=== PATIENT | female | born 1985 | race Caucasian/White ===

== ENCOUNTER 2021-07-18 11:33 | Outpatient (REF) | payer OTHER, MEDICAID, SELFPAY ==
[2021-07-18 13:22] LABS: Influenza A PCR NEGATIVE (Negative); Influenza B PCR NEGATIVE (Negative); Resp Syncy Virus RNA Qual PCR NEGATIVE (Negative); SARS COV2 PCR INHOUSE NEGATIVE (Negative)
== END 2021-07-18 11:34 | disposition home or self-care (01) ==
LOC: HO.LNP 11:33
PROVIDERS: Visit Provider Physician Assistant Medical
DX: Z20.822 Contact with and (suspected) exposure to COVID-19 (principal); J06.9 Acute upper respiratory infection, unspecified
CPT/HCPCS: 0241U

== ENCOUNTER 2022-12-17 07:50 | Outpatient (REF) | payer MEDICAID, SELFPAY ==
[2022-12-17 11:16] LABS: MANUAL DIFF FLAG NO
[2022-12-17 11:37] LABS: Basophils Absolute Auto 0.1 X10*3/uL (0.0-0.2); Basophils Percent Auto 0.9 % (0-2); Eosinophils Absolute Auto 0.2 X10*3/uL (0.0-0.4); Eosinophils Percent Auto 2.3 % (0-4); Hemoglobin 13.2 g/dl (12.0-16.0); Imm Gran Abs Auto 0.02 X10*3/uL (0.00-0.03); Imm Gran Pct Auto 0.3 % (0.0-0.4); Lymphocytes Absolute Auto 1.8 X10*3/uL (1.2-4.9); Lymphocytes Percent Auto 26.6 % (20-40); Mean Corpuscular HGB Conc 31.4 g/dl (31.0-35.0); Mean Corpuscular Hemoglobin 28.6 pg (27.0-33.0); Mean Corpuscular Volume 91.1 fL (80.0-98.0); Mean Platelet Volume 10.5 fL (9.4-12.3); Monocytes Absolute Auto 0.4 X10*3/uL (0.1-1.2); Monocytes Percent Auto 6.4 % (2-11); Neutrophils Absolute Auto 4.2 x10*3/uL (2.0-8.3); Neutrophils Percent Auto 63.5 % (45-73); Platelet Count 315 X10*3/uL (160-400); Red Blood Count 4.61 X10*6/uL (4.20-5.50); Red Cell Distribution Width 14.1 % (11.0-16.0); White Blood Count 6.6 X10*3/uL (4.8-10.8)
[2022-12-17 12:13] LABS: Alanine Aminotransferase 19 U/L (0-31); Aspartate Amino Transferase 17 U/L (5-31); Cholesterol 134 mg/dL; HDL Cholesterol 44 mg/dL; LDL Cholesterol Calculated 82 mg/dl; Triglycerides 40 mg/dL
[2022-12-17 12:46] LABS: Folate 14.9 ng/mL (> or = 4.0); TSH reflex Free T4 0.77 uIU/mL (0.32-4.0); Vitamin B12 > 2000 pg/mL (200-900)
[2022-12-19 13:04] LABS: TS Negative Control Passed; TS Panel A 0; TS Panel B 0; TS Positive Control Passed; TSpotTB Negative (Negative)
== END 2022-12-17 07:51 | disposition home or self-care (01) ==
LOC: HO.HMGCLDS 07:50
PROVIDERS: PCP Internal Medicine; Visit Provider Internal Medicine
DX: Z00.01 Encounter for general adult medical examination with abnormal findings (principal); E66.9 Obesity, unspecified; R45.86 Emotional lability; Z11.1 Encounter for screening for respiratory tuberculosis
CPT/HCPCS: 36415; 80061; 82306; 82607; 82746; 84443; 84450; 84460; 85025; 86481

== ENCOUNTER 2023-12-18 08:30 | Outpatient (AMB) | payer OTHER, SELFPAY ==
--- NOTE | 2023-12-18 08:41 | MHC.PC.OV ---
Vital Signs 12/18/23 08:50 Height 5 ft 2 in Weight 182 lb BMI 33.3 BP 124/74 Blood Pressure Location Rt brachial Position Sitting Pulse 95 Pulse Source Pulse Oximeter Pulse Oximetry (%) 100 Oxygen Delivery Method Room Air Intake Visit Reasons: annual PE Intake Note: Pt is here today for her PE: Never had a mammogram Allergies Sulfa (Sulfonamide Antibiotics) Adverse Reaction (Mild, Verified 12/18/23 09:23) YEAST INFECTION Medication List - Last Reconciled 12/18/23 by Sade Valencia MD cholecalciferol (vitamin D3) 25 mcg PO DAILY copper (ParaGard T 380A) intrauterine fexofenadine (Lela Allergy) 180 mg PO DAILY magnesium glycinate-mag oxide mg PO multivitamin (Daily Multi-Vitamin tablet) 1 tab PO DAILY vitamin B complex (B Complex-Vitamin B12 tablet) 1 tab PO DAILY Tobacco use date assessed: 12/18/23 Dental Screening Dental Screen Date: 12/18/23 Did you have a dental visit in the last 12 months?: Yes Did you have a dental problem in the last 6 months where you did not have access to dental care?: Yes Was dental information given to patient?: Patient has dentist HPI annual PE HPI Details 38-year-old lady here today for physical exam. She is up-to-date with her cervical cancer screening, goes to [facility], with last Pap smear done 04/25/2023 showing negative findings. Also is on ParaGard for contraception [facility] Medical History (Updated 12/18/23 @ 09:49 by Sade Valencia MD) Seasonal allergies Annual visit for general adult medical examination with abnormal findings Obesity (BMI 30.0-34.9) Surgical History History of tonsillectomy Family History Father Factor 5 Leiden mutation, heterozygous Basal cell carcinoma Mother Hyperlipidemia Maternal Grandfather Diabetes mellitus Social History Housing: House Patient Tobacco Use Status: Former Tobacco user Quit Date: 2014 e-Cigarette/Vaping Use: Never Used service: No Current occupational status: employed Cognitive needs: No Hearing needs: No Vision needs: No Female Reproductive History Menstrual Age of Menarche: 10 control method: copper IUCD Date of last pap smear: 04/25/23 Other: Goes to [facility] for her routine Pap and pelvic exam Questionnaire PHQ-9 Over the last 2 weeks, how often have you been bothered by any of the following problems? 1. Little interest or pleasure in doing things: several days 2. Feeling down, depressed, or hopeless: not at all 3. Trouble falling or staying asleep, or sleeping too much: several days 4. Feeling tired or having little energy: not at all 5. Poor appetite or overeating: not at all 6. Feeling bad about yourself - or that you are a failure or have let yourself or your family down: not at all 7. Trouble concentrating on things, such as reading the newspaper or watching television: not at all 8. Moving or speaking so slowly that other people could have noticed. Or the opposite - being so fidgety or restless that you have been moving around a lot more than usual: not at all 9. Thoughts that you would be better off or of hurting yourself in some way: not at all Total score: 2 Depression Screening Interpretation: Negative Depression Screening Done: Yes 97575 - PHQ-9 Billing: Yes Source: Developed by Drs. Geovany Monzon, Alma Adrian, Loc Nassar and colleagues, with an educational brooks from [employer]. Thrive Questionnaire Date Thrive assessed: 12/18/23 I am a: Patient What is your living situation today?: I have a steady place to live Within the past 12 months, did the food you bought not last and you didn't have the money to get more?: Never true Within the past 12 months, did you worry whether your food would run out before you got money to buy more?: Never true Do you have trouble paying for medicines?: No Do you have trouble getting transportation to medical appointments?: No Do you have trouble paying your heating and electricity bill?: No Do you have trouble taking care of your child, family member or friend?: No Do you have trouble with day-to-day activities such as bathing, preparing meals, shopping, managing finances, etc.?: No Are you currently unemployed and looking for a job?: No Are you interested in more education?: No Please select the resources that you would like help with: None THRIVE Score: 0 AUDIT C Alcohol Use Questionnaire (AUDIT-C) 1. How often do you have a drink containing alcohol?: Monthly or less 2. How many drinks containing alcohol do you have on a typical day when you are drinking?: 1 or 2 3. How often do you have six or more drinks on one occasion?: Less than monthly Total Score: 2 FAYE-7 AMB Questionnaire FAYE-7 Feeling nervous, anxious, or on edge: 2 = More than half the days Not being able to stop or control worryin = More than half the days Worrying too much about different things: 2 = More than half the days Trouble relaxin = More than half the days Being so restless that it is hard to sit still: 1 = Several days Becoming easily annoyed or irritable: 3 = Nearly every day Feeling afraid as if something awful might happen: 0 = Not at all Total FAYE-7 score (0-4 normal; 5-9 mild; 10-14 moderate; 15-21 severe): 12 Source: Developed by Drs. Geovany Monzon, Alma Adrian, Loc Nassar and colleagues, with an educational brooks from [employer]. FAYE-7 Assessment Billing FAYE-7 Assessment Tool: FAYE-7 Assessment 91921 Review of Systems Const Denies body aches, Denies fatigue, Denies fever(s), Denies headache(s) and Denies weakness Eyes Denies change in vision ENT Details: Frequent awakenings at night Denies dizziness, Denies headache(s), Reports nasal congestion, Denies nasal discharge, Denies sinus pain, Denies sore throat and Denies throat swelling Card Denies chest pain, Denies lightheadedness, Denies palpitations and Denies dyspnea Resp Denies chest congestion, Denies cough, Denies dyspnea and Denies wheezing GI Denies abdominal pain, Denies change in bowel habits and Denies heartburn Denies hematuria, Denies urinary frequency, Denies dysuria and Denies urinary urgency Musc Reports no additional complaints Skin/Breast Denies breast pain, Denies breast mass, Denies lesions and Denies rash Neuro Denies dizziness, Denies headache(s) and Denies weakness Psych Reports as per HPI Endo Denies fatigue, Denies polydipsia, Denies polyuria and Denies palpitations Nathan/Lymph Denies easy bruising Aller/Immun Denies seasonal rhinorrhea, Denies throat swelling and Denies wheezing Physical exam (Primary Care) Vital Signs: Last Vital Signs Pulse 95 12/18/23 08:50 BP 124/74 12/18/23 08:50 Pulse Ox 100 12/18/23 08:50 Oxygen Delivery Method Room Air 12/18/23 08:50 BMI result Body Mass Index 33.3 Tobacco/Smoking Status: Tobacco use Status Tobacco use date assessed 12/18/23 12/18/23 08:43 Patient Tobacco Use Status Former Tobacco user 12/18/23 08:42 e-Cigarette/Vaping Use Never Used 12/18/23 08:42 Depression Screening Interpretation: Negative Thrive Assessment: Date of Thrive Assessment Date Thrive assessed 12/18/23 12/18/23 09:25 Advance Care Planning discussion: Completed/Scanned Date of discussion: 12/18/23 Who was present: Patient Forms completed: Health Care Proxy Time spent: 16-45 minutes Actual minutes spent: 16 Assessment and Plan Assessment & Plan (1) Obesity (BMI 30.0-34.9): Code(s): E66.9 - Obesity, unspecified (2) Annual visit for general adult medical examination with abnormal findings: Code(s): Z00.01 - Encounter for general adult medical examination with abnormal findings Plan: Will check appropriate labs. Continue regular dental visit every 6 months and regular eye exams, at least every 2 years. Take adequate calcium in diet and vitamin-D 3 at 2000 IU per cap once a day, in addition to weight-bearing exercises to help maintain good muscle tone and weight control. Up-to-date with her cervical cancer screening, goes to [facility], currently in the process of looking for another provider in the practice. Instructed to do self-breast exam, and recommended to get yearly mammogram, starting at age 40, patient states that she will just call for an appointment at [facility]. Up-to-date with her vaccines, does not want to get a COVID booster but gets yearly flu shot (3) Seasonal allergies: Code(s): J30.2 - Other seasonal allergic rhinitis Plan: Advised to stop Lela and try either [id number] Claritin or Zyrtec or Xyzal. (4) Anxiety: Code(s): F41.9 - Anxiety disorder, unspecified Plan: Referred to our mental health coordinator, Aleida for assistance in getting in to see a therapist and evaluated for possible ADD, per patient request (5) Elevated vitamin B12 level: Code(s): R74.8 - Abnormal levels of other serum enzymes Orders: Orders Aspartate Amino Transferase Today E66.9 - Obesity, unspecified, J30.2 - Other seasonal allergic rhinitis, R74.8 - Abnormal levels of other serum enzymes, Z00.01 - Encounter for general adult medical examination with abnormal findings, Z13.1 - Encounter for screening for diabetes mellitus, Z13.220 - Encounter for screening for lipoid disorders Vitamin D 25-OH Total Today E66.9 - Obesity, unspecified, J30.2 - Other seasonal allergic rhinitis, R74.8 - Abnormal levels of other serum enzymes, Z00.01 - Encounter for general adult medical examination with abnormal findings, Z13.1 - Encounter for screening for diabetes mellitus, Z13.220 - Encounter for screening for lipoid disorders Vitamin B12 and Folate Today E66.9 - Obesity, unspecified, J30.2 - Other seasonal allergic rhinitis, R74.8 - Abnormal levels of other serum enzymes, Z00.01 - Encounter for general adult medical examination with abnormal findings, Z13.1 - Encounter for screening for diabetes mellitus, Z13.220 - Encounter for screening for lipoid disorders Lipid Panel Today E66.9 - Obesity, unspecified, J30.2 - Other seasonal allergic rhinitis, R74.8 - Abnormal levels of other serum enzymes, Z00.01 - Encounter for general adult medical examination with abnormal findings, Z13.1 - Encounter for screening for diabetes mellitus, Z13.220 - Encounter for screening for lipoid disorders Alanine Aminotransferase Today E66.9 - Obesity, unspecified, J30.2 - Other seasonal allergic rhinitis, R74.8 - Abnormal levels of other serum enzymes, Z00.01 - Encounter for general adult medical examination with abnormal findings, Z13.1 - Encounter for screening for diabetes mellitus, Z13.220 - Encounter for screening for lipoid disorders Basic Metabolic Panel Fasting Today E66.9 - Obesity, unspecified, J30.2 - Other seasonal allergic rhinitis, R74.8 - Abnormal levels of other serum enzymes, Z00.01 - Encounter for general adult medical examination with abnormal findings, Z13.1 - Encounter for screening for diabetes mellitus, Z13.220 - Encounter for screening for lipoid disorders Coding Level of Care Code Est Pt Prev Care 40-64y([id number]) Diagnoses Obesity (BMI 30.0-34.9) E66.9 Annual visit for general adult medical examination with abnormal findings Z00.01 Seasonal allergies J30.2 Anxiety F41.9 Elevated vitamin B12 level R74.8 Additional Codes FAYE-7 Assessment Billing - FAYE-7 Assessment Tool: FAYE-7 Assessment 61354 ([id number]) Vital Signs *Quality* - Advance Care Planning discussion: Completed/Scanned ([id number]) Vital Signs *Quality* - Time spent: 16-45 minutes ([id number])
[2023-12-18 08:50] VITALS: BP 124/74; PULSE 95; O2SAT 100; BMI 33.3
== END 2023-12-18 09:59 | disposition home or self-care (01) ==
PROVIDERS: Visit Provider Internal Medicine
DX: Z00.00 Encounter for general adult medical examination without abnormal findings (principal); E66.9 Obesity, unspecified; Z68.33 Body mass index [BMI] 33.0-33.9, adult; R74.8 Abnormal levels of other serum enzymes; J30.2 Other seasonal allergic rhinitis; F41.9 Anxiety disorder, unspecified
CPT/HCPCS: 1123F; 99396; 99497

== ENCOUNTER 2024-12-23 08:25 | Outpatient (REF) | payer OTHER, SELFPAY ==
--- OUTSIDE RECORDS SUMMARY | 2024-12-23 08:41 | XMS_ITS | Data Portability ---
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 Plan of Treatment Reminders Order Date Submit Date Provider Last Modified By Organization Details Last Modified Time Details Appointments None recorded. Lab rapid strep group A, throat 2022 023 [email or web address] _[facility], [address] [facility], [place], [address], 10:19:23 Referral None recorded. Procedures None recorded. Surgeries None recorded. Imaging None recorded. Medication Orders cefuroxime axetil 500 mg tablet 2022 023 [id number] [address] [facility] [place] [place], [address], 13:58:04 prednisone 20 mg tablet 2022 023 [id number] [address] [facility] [place], [address], 3 13:58:04 benzonatate 200 mg capsule 2022 023 [id number] [address] [facility] [place], [address], 3 10:19:25 amoxicillin 875 mg-potassiu m clavulanate 125 mg tablet 2022 023 [id number], [address] [place], [address], 10:19:25 prednisone 20 mg tablet 2022 023 [id number], [address] [place], [address], 10:19:25 Patient TargetsNo targets recorded. Patient Instructions Encounter Date Encounter Id Patient Instructions Last Modified By Organization Details Last Modified Time 10/13/2022 [id number] Acute Sinusitis: Care Instructions Not available 10/13/2022 10:19:46 An ear infection may start with a cold and affect the middle ear (otitis media). It can hurt a lot. Most ear infections clear up on their own in a couple of days and do not need antibiotics. Also, antibiotics do not work against viruses, which may be the cause of your infection. Regular doses of pain relievers are the best way to reduce your fever and help you feel better. How can you care for yourself at home? Take pain medicines exactly as directed. If the doctor gave you a prescription medicine for pain, take it as prescribed. If you are not taking a prescription pain medicine, take an rpyg-lgv-pcsaowh medicine, such as acetaminophen (Tylenol), ibuprofen (Advil, Motrin), or naproxen (Aleve). Read and follow all instructions on the label. Do not take two or more pain medicines at the same time unless the doctor told you to. Many pain medicines have acetaminophen, which is Tylenol. Too much acetaminophen (Tylenol) can be harmful. Plan to take a full dose of pain reliever before bedtime. Getting enough sleep will help you get better. Try a warm, moist face cloth on the ear. It may help relieve pain. If your doctor prescribed antibiotics, take them as directed. Do not stop taking them just because you feel better. You need to take the full course of antibiotics. Not available 10/13/2022 10:19:08 Discussed potential complications and intervention options with the patient during this visit. Patient was instructed to increase room humidity and eat soft bland foods. Raising the head of the bed, lozenges, and saline nasal spray were also recommended. Patient may take ibuprofen or acetaminophen as needed for pain control. If the issue does not improve in 24-48 hours, patient should return to the clinic for follow-up. You have been prescribed an antibiotic for your bacterial illness. While antibiotics are sometimes necessary, they can have a negative impact upon the healthy bacteria within your body. This can result in diarrhea/loose stools and yeast infections. By taking probiotics during the course of your prescription, you can lessen the probability of these undesirable side effects. Probiotics can be purchased opcn-cwz-dselfxu at your pharmacy in the form of capsules or gummies. They are also found naturally in yogurt with live cultures. Mix salt into a quarter-glass of warm water and stir until no more salt will dissolve. Gargle and spit out the salt water mixture one mouthful at a time until the glass is empty. Repeat 4 times daily. Hand hygiene is a monk measure for preventing spread to others, especially after coughing or sneezing and before preparing foods or eating, and we remind all patients of its importance. Please discard of your current tooth brush and get a new one after being on the antibiotic for 3-4 days to prevent reinfection. You are considered contagious until you have the antibiotic for 24 hours. We have sent out for lab results, typically take 3-5 days to return. Sinusitis is an infection of the lining of the sinus cavities in your head. Sinusitis often follows a cold. It causes pain and pressure in your head and face. In most cases, sinusitis gets better on its own in 1 to 2 weeks. But some mild symptoms may last for several weeks. Sometimes antibiotics are needed. if you are having problems. It's also a good idea to know your test results and keep a list of the medicines you take. How can you care for yourself at home? Take an iapa-syp-vuqqnkd pain medicine. Avoid Ibuprofen, Aleve and Aspirin if . If the doctor prescribed antibiotics, take them as directed. Do not stop taking them just because you feel better. You need to take the full course of antibiotics. Be careful when taking bfan-xwt-hdytlxy cold or influenza (flu) medicines and Tylenol at the same time. Many of these medicines have acetaminophen, which is Tylenol. Read the labels to make sure that you are not taking more than the recommended dose. Too much acetaminophen (Tylenol) can be harmful. Breathe warm, moist air from a steamy shower, a hot bath, or a sink filled with hot water. Avoid cold, dry air. Using a humidifier in your home may help. Follow the directions for cleaning the machine. Use saline (saltwater) nasal washes. This can help keep your nasal passages open and wash out mucus and bacteria. You can buy saline nose drops at a grocery store or drugstore. Or you can make your own at home by adding 1 teaspoon (5 millilitres) of salt and 1 teaspoon (5 millilitres) of baking soda to 2 cups (500 mL) of distilled water. If you make your own, fill a bulb syringe with the solution, insert the tip into your nostril, and squeeze gently. Blow your nose. Put a hot, wet towel or a warm gel pack on your face 3 or 4 times a day for 5 to 10 minutes each time. Try a decongestant nasal spray like oxymetazoline (Drixoral). Do not use it for more than 3 days in a row. Using it for more than 3 days can make your congestion worse. Not available 10/13/2022 10:19:21 10/19/2022 [id number] Sinusitis is an infection of the lining of the sinus cavities in your head. Sinusitis often follows a cold. It causes pain and pressure in your head and face. In most cases, sinusitis gets better on its own in 1 to 2 weeks. But some mild symptoms may last for several weeks. Sometimes antibiotics are needed. if you are having problems. It's also a good idea to know your test results and keep a list of the medicines you take. How can you care for yourself at home? Take an syuo-wch-fehdlht pain medicine. Avoid Ibuprofen, Aleve and Aspirin if . If the doctor prescribed antibiotics, take them as directed. Do not stop taking them just because you feel better. You need to take the full course of antibiotics. Be careful when taking qqry-vgk-dcmaxxs cold or influenza (flu) medicines and Tylenol at the same time. Many of these medicines have acetaminophen, which is Tylenol. Read the labels to make sure that you are not taking more than the recommended dose. Too much acetaminophen (Tylenol) can be harmful. Breathe warm, moist air from a steamy shower, a hot bath, or a sink filled with hot water. Avoid cold, dry air. Using a humidifier in your home may help. Follow the directions for cleaning the machine. Use saline (saltwater) nasal washes. This can help keep your nasal passages open and wash out mucus and bacteria. You can buy saline nose drops at a grocery store or drugstore. Or you can make your own at home by adding 1 teaspoon (5 millilitres) of salt and 1 teaspoon (5 millilitres) of baking soda to 2 cups (500 mL) of distilled water. If you make your own, fill a bulb syringe with the solution, insert the tip into your nostril, and squeeze gently. Blow your nose. Put a hot, wet towel or a warm gel pack on your face 3 or 4 times a day for 5 to 10 minutes each time. Try a decongestant nasal spray like oxymetazoline (Drixoral). Do not use it for more than 3 days in a row. Using it for more than 3 days can make your congestion worse. Not available 10/19/2022 13:57:42 An ear infection may start with a cold and affect the middle ear (otitis media). It can hurt a lot. Most ear infections clear up on their own in a couple of days and do not need antibiotics. Also, antibiotics do not work against viruses, which may be the cause of your infection. Regular doses of pain relievers are the best way to reduce your fever and help you feel better. How can you care for yourself at home? Take pain medicines exactly as directed. If the doctor gave you a prescription medicine for pain, take it as prescribed. If you are not taking a prescription pain medicine, take an tvvs-vey-uwecalj medicine, such as acetaminophen (Tylenol), ibuprofen (Advil, Motrin), or naproxen (Aleve). Read and follow all instructions on the label. Do not take two or more pain medicines at the same time unless the doctor told you to. Many pain medicines have acetaminophen, which is Tylenol. Too much acetaminophen (Tylenol) can be harmful. Plan to take a full dose of pain reliever before bedtime. Getting enough sleep will help you get better. Try a warm, moist face cloth on the ear. It may help relieve pain. If your doctor prescribed antibiotics, take them as directed. Do not stop taking them just because you feel better. You need to take the full course of antibiotics. [email or web address] Not available 10/19/2022 13:57:34 Reason for Referral None Reported. Results Created Date Observation Date Name Description Value Unit Range Abnormal Flag Note LastModifiedBy Organization Detail LastModifiedTime 10/13/1910/13/2022 rapid strep group A, throa t Unknown Analyte Normal = Negati ve Not Available _[facility] [address], [address], 10/13/2022 10:00:31 10/13/1910/13/2022 rapid strep group A, throa t Unknown Analyte positi ve Not Available [address] [address], [address], 10/13/2022 10:00:31 Result Notes None recorded. Problems No Known Problems Medical Equipment None Reported. Allergies Allergen ID Allergen Name Allergen Category Reaction Reaction Severity Criticality Documentation Date Start Date Code Code System Note Provider Name and Address Organization Details Recorded Time [id number] Substance with sulfonami de structure and antibacte rial mechanism of action (substanc e) medicatio n Not available Not available Not available 10/13/2022 [id number] SNOMED [facility] Cart[facility] 3 09:56:28 Medications Name Sig Start Date Stop Date Status Note LastModified by Organization Details LastModified Time benzonatate 200 mg capsule Take 1 capsule 3 times a day by oral route as needed for 7 days. 023 active Not Available Not Available Not Avai lable prednisone 20 mg tablet TAKE 2 TABLETS BY MOUTH EVERY DAY IN THE MORNING FOR 4 DAYS. active Not Available Not Available No t Available cefuroxime axetil 500 mg tablet TAKE 1 TABLET BY MOUTH TWICE A DAY WITH MEALS FOR 10 DAYS active Not Available Not Available No t Available amoxicillin 875 mg-potassium clavulanate 125 mg tablet TAKE 1 TABLET BY MOUTH EVERY 12 HOURS WITH MEALS FOR 10 DAYS active Not Available Not Available No t Available Lela-D 12 Hour active Not Available Not Available Not Available Vitals Date Recorded Body height Body mass index (BMI) Body weight Pain severity - 0-10 verbal numeric rating [Score] - Reported Oxygen saturation Oxygen saturation in Arterial blood by Pulse oximetry Heart rate Respiratory rate Body temperature Systolic blood pressure Diastolic blood pressure Provider Name and Address Organization Details Last Updated DateTime 157.48 cm 32.9 kg/m2 97484.6 3 g 8 100 % 100 % 100 /min 18 /min 98.3 [degF] 134 mm[Hg] 84 mm[Hg] JODY CHAVEZ [facility] 09:59:29 Date Recorded Body height Body mass index (BMI) Body weight Body temperature Respiratory rate Heart rate Oxygen saturation Oxygen saturation in Arterial blood by Pulse oximetry Systolic blood pressure Diastolic blood pressure Provider Name and Address Organization Details Last Updated DateTime 157.48 cm 32.9 kg/m2 66748.6 3 g 98 [degF] 18 /min 96 /min 100 % 100 % 130 mm[Hg] 87 mm[Hg] YESENIA Moreira [facility] - [facility] 13:32:28 Social History Question Answer Notes LastModified by [employer] Details LastModified Time Tobacco Smoking Status Never Smoker JODY acosta [facility] 10/13/2022 09:57:27 What Is Your Level Of Alcohol Consumption? Occasional Information not available 10/13/2022 Are You Currently Employed? Yes Information not available 10/13/2022 Do You Use Any Illicit Or Recreational Drugs? No Information not available 10/13/2022 Have You Recently Traveled Abroad? No Information not available 10/13/2022 Do You Or Have You Ever Used Any Other Forms Of Tobacco Or Nicotine? No Information not available 10/13/2022 Sex: Unknown Functional Status None recorded. Mental Status None recorded. Family History Relationship Description Onset Age of this Age Resolved Age Notes LastModified by Organization Details LastModified Time Father No current problems or disability Not available 10/13 09:57:13 Mother No current problems or disability Not available 10/13 09:57:13 Medical History No medical history recorded. Gynecological History Statement/Question Response Date of LMP 10/13/2022 Obstetrics History GPAL:G 0 P 0 0 0 0 Past Encounters Encounter ID Performer Location Encounter Start Date Encounter Closed Date Diagnosis/Indication Diagnosis SNOMED-CT Code Diagnosis ICD10 Code Diagnosis Note [id number] [address] [place] [address] 08/07/2019 09:29:11 08/07/2019 10:22:42 [id number] [address] [place] [address] 08/02/2018 10:40:09 08/02/2018 11:28:31 [id number] [address] [place] [address] 08/24/2018 17:39:24 08/24/2018 18:05:06 [id number] [address] [place] [address] 11/22/2017 14:23:33 11/22/2017 15:52:56 [id number] [address] [place] [address] 12/01/2020 10:02:15 12/01/2020 11:47:36 [id number] [address] [place] [address] 04/26/2019 10:00:58 04/26/2019 10:34:36 [id number] [address] [place] [address] 2017 18:17:37 2017 19:09:49 [id number] [address] [place] [address] 08/19/2017 16:33:04 08/19/2017 17:16:02 [id number] [address] [place] [address] 05/03/2017 14:47:37 05/03/2017 15:49:06 [id number] [address] [place] [address] 06/29/2016 08:09:00 06/29/2016 08:44:35 [id number] [address] [place] [address] 04/12/2019 18:41:47 04/12/2019 19:34:20 [id number] Diego Floyd NP [address] [place] [address] 10/13/2022 08:37:05 10/13/2022 10:21:43 Acute right otitis media 145570431 H66.91 Streptococ farzad sore throat 39615680 J02.0 [id number] Diego Floyd NP [address] [place] [address] 10/19/2022 13:06:05 10/19/2022 14:00:50 Acute right otitis media [id number] H66.91 Health Concerns Section Related Observation LastModified by Organization Detai ls LastModified Time None Recorded Concern Status LastModified by Organization Details LastModified Time None Recorded Advance Directives Directive None Recorded Payers Insurance Date Sequence Insurance Name Policy Number Policy Chong Covered Member ID Chong Member ID Guarantor Name 12/28/2022 1 [facility] [id number] Robbie A Renaldo [id number] Robbie A Renaldo 12/28/2022 1 [facility] Robbie A Renaldo [id number] Robbie A Renaldo Notes Date Note Type Note Provider Name and Address Organization Details Recorded Time 10/13/2022 text/html CongestionReport ed bypatient.Notes:right ear pain, sore throat, nasal congestion with post nasal drip x 3 days. denies any fever or fever with chills. no SOB or respiratory distress. Diego Floyd NP [address] [place], [address], [place] - [facility] 10/13/2022 10:20:45 10/19/2022 text/html CongestionReport ed bypatient.Notes:nasal congestion with post nasal drip x 3 weeks. denies nay fever or fever with chills. no SOB or respiratory distress.Ear Pain Brief HPIReported bypatient.Location:[facility] Onset/Timing:intermitte nt pain; gradual onset Duration:occurs daily; sensation/episode variable length Quality:aching pain;sharp pain Severity:getting worse Context:recent ear infection Alleviating factors:oral antibiotics Aggravating factors:sinus infections; allergies; irrigation of ear Associated Symptoms:Cough;nasal congestion;nasal discharge Diego Floyd NP [address] [place], [address], [place] - [facility] 10/19/2022 13:58:44 OBGyn Episode No OBEpisode recorded.
[2024-12-23 10:56] LABS: Cholesterol 121 mg/dL (<200); Glucose Fasting 90 mg/dL (60-99); HDL Cholesterol 43 mg/dL (>40); LDL Cholesterol Calculated 70 mg/dL (<100); Triglycerides 40 mg/dL (<150)
[2024-12-23 11:15] LABS: Vitamin D 25-OH Total 60.6 ng/mL (>30)
[2024-12-23 11:27] LABS: Folate 12.6 ng/mL (> or = 4.0); Vitamin B12 525 pg/mL (200-900)
== END 2024-12-23 08:26 | disposition home or self-care (01) ==
LOC: HO.HMGCLDS 08:25
PROVIDERS: PCP Internal Medicine; Visit Provider Internal Medicine
DX: E66.9 Obesity, unspecified (principal); R79.89 Other specified abnormal findings of blood chemistry; Z13.220 Encounter for screening for lipoid disorders; Z13.1 Encounter for screening for diabetes mellitus
CPT/HCPCS: 36415; 80061; 82306; 82607; 82746; 82947

== ENCOUNTER 2024-12-30 13:55 | Outpatient (AMB) | payer OTHER, MEDICAID, SELFPAY ==
--- NOTE | 2024-12-30 14:12 | MHC.PC.OV ---
Vital Signs 12/30/24 14:17 Height 5 ft 2 in Weight 192 lb BMI 35.1 BP 134/74 Blood Pressure Location Lt brachial Position Sitting Respiration 16 Pulse 96 Pulse Source Pulse Oximeter Temp 98.3 F Temp Source Oral Pulse Oximetry (%) 99 Oxygen Delivery Method Room Air Intake Visit Reasons: annual PE Intake Note: Pt is here today for her PE: last papsmear 12/21/22 Is last menstrual period known: Yes Last menstrual period: 12/20/24 Allergies Sulfa (Sulfonamide Antibiotics) Adverse Reaction (Mild, Verified 12/30/24 14:50) YEAST INFECTION Medication List - Last Reconciled 12/30/24 by Sade Valencia MD cholecalciferol (vitamin D3) 25 mcg PO DAILY copper (ParaGard T 380A) intrauterine magnesium glycinate-mag oxide mg PO methylphenidate HCl ER (Concerta) 18 mg PO DAILY multivitamin (Daily Multi-Vitamin tablet) 1 tab PO DAILY Tobacco use date assessed: 12/30/24 Dental Screening Dental Screen Date: 12/30/24 Did you have a dental visit in the last 12 months?: Yes Did you have a dental problem in the last 6 months where you did not have access to dental care?: No Was dental information given to patient?: Patient has dentist HPI annual PE HPI Details 39-year-old lady with history of ADD currently on Concerta, here today for her physical exam. She used to go to [facility], but they have since closed and now has an appointment to see [facility] in [place]. Last Pap smear was in 2022 showing normal findings She has been feeling well, with no current complaints Has not yet had a mammogram would like to wait until she sees her new OBGYN Received 2 COVID vaccines in the past does not want to get the booster, gets yearly flu shots but missed 1 last year, due for her tetanus booster in a last Tdap was in 2013 [facility] Medical History (Updated 12/30/24 @ 14:50 by Sade Valencia MD) ADD (attention deficit disorder) Seasonal allergies Annual visit for general adult medical examination with abnormal findings Obesity (BMI 30.0-34.9) Surgical History History of tonsillectomy Family History Father Factor 5 Leiden mutation, heterozygous Basal cell carcinoma Mother Hyperlipidemia Maternal Grandfather Diabetes mellitus Sister Breast cancer Social History Housing: House Patient Tobacco Use Status: Former Tobacco user e-Cigarette/Vaping Use: Never Used service: No Current occupational status: employed Cognitive needs: No Hearing needs: No Vision needs: No Female Reproductive History Menstrual Age of Menarche: 10 Date of last menstrual period: 12/20/24 Questionnaire PHQ-9 Over the last 2 weeks, how often have you been bothered by any of the following problems? 1. Little interest or pleasure in doing things: not at all 2. Feeling down, depressed, or hopeless: not at all 3. Trouble falling or staying asleep, or sleeping too much: not at all 4. Feeling tired or having little energy: not at all 5. Poor appetite or overeating: not at all 6. Feeling bad about yourself - or that you are a failure or have let yourself or your family down: not at all 7. Trouble concentrating on things, such as reading the newspaper or watching television: not at all 8. Moving or speaking so slowly that other people could have noticed. Or the opposite - being so fidgety or restless that you have been moving around a lot more than usual: not at all 9. Thoughts that you would be better off or of hurting yourself in some way: not at all Total score: 0 Depression Screening Interpretation: Negative Depression Screening Done: Yes 54794 - PHQ-9 Billing: Yes Source: Developed by Drs. Geovany Monzon, Alma Adrian, Loc Nassar and colleagues, with an educational brooks from [employer]. Thrive Questionnaire Date Thrive assessed: 12/28/24 I am a: Patient What is your living situation today?: I have a steady place to live Within the past 12 months, did the food you bought not last and you didn't have the money to get more?: Never true Within the past 12 months, did you worry whether your food would run out before you got money to buy more?: Never true Do you have trouble paying for medicines?: No Do you have trouble getting transportation to medical appointments?: No Do you have trouble paying your heating and electricity bill?: No Do you have trouble taking care of your child, family member or friend?: No Do you have trouble with day-to-day activities such as bathing, preparing meals, shopping, managing finances, etc.?: No Are you currently unemployed and looking for a job?: No Are you interested in more education?: Yes Please select the resources that you would like help with: None Currently or been in a relationship where the following occur: No concerns reported THRIVE Score: 0 AUDIT C Alcohol Use Questionnaire (AUDIT-C) 1. How often do you have a drink containing alcohol?: Never 3. How often do you have six or more drinks on one occasion?: Never Total Score: 0 FAYE-7 AMB Questionnaire FAYE-7 Date FAYE - 7 assessed: 12/30/24 Feeling nervous, anxious, or on edge: 0 = Not at all Not being able to stop or control worryin = Not at all Worrying too much about different things: 0 = Not at all Trouble relaxin = Not at all Being so restless that it is hard to sit still: 0 = Not at all Becoming easily annoyed or irritable: 1 = Several days Feeling afraid as if something awful might happen: 0 = Not at all Total FAYE-7 score (0-4 normal; 5-9 mild; 10-14 moderate; 15-21 severe): 1 Source: Developed by Drs. Geovany Monzon, Alma Adrian, Loc Nassar and colleagues, with an educational brooks from [employer]. FAYE-7 Assessment Billing FAYE-7 Assessment Tool: FAYE-7 Assessment 91241 Review of Systems Const Denies body aches, Denies fatigue, Denies fever(s), Denies headache(s), Denies weakness and Reports weight gain Eyes Denies change in vision ENT Denies dizziness, Denies otalgia, Denies headache(s), Reports nasal congestion, Denies nasal discharge and Denies sinus pain Card Denies chest pain, Denies lightheadedness, Denies palpitations and Denies dyspnea Resp Denies chest congestion, Denies cough, Denies dyspnea and Denies wheezing GI Denies abdominal pain, Denies change in bowel habits and Denies heartburn Denies hematuria, Denies urinary frequency, Denies dysuria and Denies urinary urgency Musc Reports no additional complaints Skin/Breast Denies breast pain, Denies breast mass, Denies lesions and Denies rash Neuro Denies dizziness, Denies headache(s) and Denies weakness Psych Reports no additional complaints Endo Denies fatigue, Denies polydipsia, Denies polyuria and Denies palpitations Nathan/Lymph Denies easy bruising Aller/Immun Denies seasonal rhinorrhea and Denies wheezing Physical exam (Primary Care) Vital Signs: Last Vital Signs Temp 98.3 F 12/30/24 14:17 Pulse 96 12/30/24 14:17 Resp 16 12/30/24 14:17 BP 134/74 12/30/24 14:17 Pulse Ox 99 12/30/24 14:17 Oxygen Delivery Method Room Air 12/30/24 14:17 BMI result Body Mass Index 35.1 BMI Assessment/Plan discussion: High BMI High, discussed plan: lifestyle, weight reduction, dietary and physical activity Tobacco/Smoking Status: Tobacco use Status Tobacco use date assessed 12/30/24 12/30/24 14:14 Patient Tobacco Use Status Former Tobacco user 12/30/24 14:13 e-Cigarette/Vaping Use Never Used 12/30/24 14:13 PHQ-9: PHQ-9 Score PHQ-9: Total score 0 12/30/24 14:23 Depression Screening Interpretation: Negative Thrive Assessment: Date of Thrive Assessment Date Thrive assessed 12/28/24 12/30/24 14:13 Currently or been in a relationship where the following occur: No concerns reported Const General: comfortable, no acute distress and alert Nutritional Appearance: obese Orientation/consciousness: patient oriented x3 HENMT Head: Yes normocephalic Ears: external ears normal, TM's normal bilaterally and EAC's normal General nose exam: Normal external nose present Face and sinus: Yes face symmetric Mouth: oropharynx normal and moist mucous membranes Eyes General: appearance normal, both eyes and all related structures Neck Other: Nonpalpable thyroid gland Neck: Yes full ROM, Yes no lymphadenopathy and Yes supple Chest Chest palpation & inspection: normal inspection of the chest and normal palpation of entire chest wall Breast/axilla inspection: normal inspection of the breasts Breast/axilla palpation: normal palpation of the breasts and normal palpation of the axillae Resp Effort & Inspection: normal respiratory effort and able to speak in complete sentences Auscultation: clear to auscultation bilaterally Cardio Rate: regular rate Rhythm: regular rhythm Heart sounds: S1 normal heart sound present and S2 normal heart sound present GI Palpation (GI): Soft to palpation, nontender, no guarding and no masses Percussion: Yes normal to percussion Auscultation: normal bowel sounds Other: Has appointment already scheduled with [facility] in [place] General: Yes no CVA tenderness Back/Spine/Pelvis Back: no CVA tenderness and No back tenderness Skin General skin exam: no rashes or lesions noted Neuro General: patient oriented x3, gait normal, tone normal, moves all extremities, Normal light touch and pain sensation, no focal motor deficits and CN's II-XI intact bilaterally Extrem General: Yes full ROM, Yes no joint enlargement, Yes no clubbing, cyanosis or edema, Yes no calf tenderness and Yes normal gait Psych Appearance: grossly normal and well kempt Mental Status: mental status grossly normal Speech and movement: Normal speech and movement present Affect: normal affect Attitude: cooperative Thought process: Normal thought process present Thought content: Normal thought content present Results Reviewed Results Reviewed: Name: Robbie Macario Age/Sex: 39/F : 1985 Unit#: [id number] Attend Dr: Sade Valencia MD Re12/23/24 Status: DEP REF Location: [facility] Disch: SPEC : [id number] GEOFFREY: 12/23/24 STATUS: COMP REQ : [id number] RECD: 12/23/[address]: Sade Valencia MD COMP: 12/23/245 ENTERED: 12/23/[address]: ORDERED: Glu Fasting, Lipid Panel, Vitamin D 25-OH Test Result Flag Reference FBS 90 60-99 mg/dL Triglyceride 40 <150 mg/dL Desirable Triglyceride: less than 150 mg/dL Borderline High Triglyceride 150-199 mg/dL High Triglyceride: 200-499 mg/dL Very High Triglyceride: greater than or equal to 5OO mg/dL Cholesterol 121 <200 mg/dL Desirable Cholesterol: less than 200 mg/dL Borderline High Cholesterol: 200-239 mg/dL High Cholesterol: greater than 239 mg/dL LDL Calculated 70 <100 mg/dL Desirable LDL: less than 100 mg/dL Near Optimal/Above Optimal LDL: 110-129 mg/dL Borderline High LDL: 130-159 mg/dL High LDL: 160-189 mg/dL Very High LDL: greater than or equal to 190 mg/dL HDL 43 >40 mg/dL Desirable HDL: greater than 40 mg/dL Note: This HDL assay may give artificially low results in patients with liver disease. Vitamin D 25-OH 60.6 >30 ng/mL Health Based Reference Values* < 20 ng/mL Deficient 20-30 ng/mL Insufficient > 30 ng/mL Sufficient Coding Level of Care Code Est Pt Prev Care 40-64y(53526) Diagnoses Annual visit for general adult medical examination with abnormal findings Z00. ADD (attention deficit disorder) F98.8 Obesity (BMI 30.0-34.9) E66.9 Additional Codes PHQ-9 - 30813 - PHQ-9 Billing: Yes ([id number]) FAYE-7 Assessment Billing - FAYE-7 Assessment Tool: FAYE-7 Assessment 52876 ([id number]) Assessment & Plan Assessment & Plan (1) Annual visit for general adult medical examination with abnormal findings: Code(s): Z00. - Encounter for general adult medical examination with abnormal findings Category: Medical Plan: Recent fasting lab results with a view reviewed with patient which showed normal fasting glucose, lipids and vitamin-D and B12 levels. Continue regular dental visit every 6 months and regular eye exams, at least every 2 years. Take adequate calcium in diet and vitamin-D 3 at 2000 IU per cap once a day, in addition to weight-bearing exercises to help maintain good muscle tone and weight control. Instructed to do self-breast exam, and recommended to get yearly mammogram, starting at age 40, patient wants to wait until she sees her new OBGYN in [place] . Reminded to get her updated tetanus booster, gets yearly flu shots but does not want to get COVID vaccine boosters anymore (2) ADD (attention deficit disorder): Comment: Currently on Concerta, followed by [facility] Norie[facility] Code(s): F98.8 - Other specified behavioral and emotional disorders with onset usually occurring in childhood and adolescence Category: Medical Plan: Currently doing well on Concerta (3) Obesity (BMI 30.0-34.9): Code(s): E66.9 - Obesity, unspecified Category: Medical Plan: Reinforced importance of following a low-cholesterol diet and getting regular exercise
[2024-12-30 14:17] VITALS: BP 134/74; PULSE 96; RESP 16; TEMP 36.8; O2SAT 99; BMI 35.1
--- OUTSIDE RECORDS SUMMARY | 2024-12-30 14:37 | XMS_ITS | Data Portability ---
Author Organization [facility], [address] Address [address] [place] [address] Care Team Providers Care Fighter Pilot Name Role Phone [facility] Primary Care Provider Assessment No assessment recorded. Plan of Treatment Reminders Order Date Submit Date Provider Last Modified By Organization Details Last Modified Time Details Appointments None recorded. Lab rapid strep group A, throat 2022 023 [email or web address] [facility], [address] [facility], [place], [address], 10:19:23 Referral None recorded. Procedures None recorded. Surgeries None recorded. Imaging None recorded. Medication Orders cefuroxime axetil 500 mg tablet 2022 023 [id number] [address] [facility] [place], [address], 13:58:04 prednisone 20 mg tablet 2022 023 [id number] [address] [facility] [place], [address], 3 13:58:04 benzonatate 200 mg capsule 2022 023 [id number] [address] [facility] [place], [address], 3 10:19:25 amoxicillin 875 mg-potassiu m clavulanate 125 mg tablet 2022 023 [id number], [address] [place], [address], 10:19:25 prednisone 20 mg tablet 2022 023 [id number], [address] [place], [address], 10:19:25 Patient TargetsNo targets recorded. Patient Instructions Encounter Date Encounter Id Patient Instructions Last Modified By Organization Details Last Modified Time 10/13/2022 [id number] Acute Sinusitis: Care Instructions Not available 10/13/2022 [...] taking a prescription pain medicine, take an pnqo-dvl-fcfllgn medicine, such as acetaminophen (Tylenol), ibuprofen (Advil, [...] undesirable side effects. Probiotics can be purchased hbuy-avb-gxmukvj at your pharmacy in the form of [...] care for yourself at home? Take an auzf-gsn-qeirzwh pain medicine. Avoid Ibuprofen, Aleve and Aspirin if . If the doctor prescribed antibiotics, take them as directed. Do not stop taking them just because you feel better. You need to take the full course of antibiotics. Be careful when taking cyfa-qgn-ncbhoij cold or influenza (flu) medicines and Tylenol [...] congestion worse. Not available 10/13/2022 10:19:21 10/19/2022 [id number] Sinusitis is an infection of the lining [...] care for yourself at home? Take an vahe-gps-gknzukc pain medicine. Avoid Ibuprofen, Aleve and Aspirin if . If the doctor prescribed antibiotics, take them as directed. Do not stop taking them just because you feel better. You need to take the full course of antibiotics. Be careful when taking sgpq-img-tneaqio cold or influenza (flu) medicines and Tylenol [...] taking a prescription pain medicine, take an dcmn-mxu-owrqszj medicine, such as acetaminophen (Tylenol), ibuprofen (Advil, [...] Analyte Normal = Negati ve Not Available _[facility] [address], [address], 10/13/2022 10:00:31 10/13/1910/13/2022 rapid strep group A, throa t Unknown Analyte positi ve Not Available [address], [address], 10/13/2022 10:00:31 Result Notes None recorded. Problems [...] Not available Not available Not available 10/13/2022 [id number] SNOMED [facility] [place] [...] Last Updated DateTime 157.48 cm 32.9 kg/m2 68732.6 3 g 8 100 % 100 % 100 /min 18 /min 98.3 [degF] 134 mm[Hg] 84 mm[Hg] JODY CHAVEZ [place] - [facility] 09:59:29 Date Recorded Body height Body mass index (BMI) Body weight Body temperature Respiratory rate Heart rate Oxygen saturation Oxygen saturation in Arterial blood by Pulse oximetry Systolic blood pressure Diastolic blood pressure Provider Name and Address Organization Details Last Updated DateTime 157.48 cm 32.9 kg/m2 72520.6 3 g 98 [degF] 18 /min 96 /min 100 % 100 % 130 mm[Hg] 87 mm[Hg] YESENIA Moreira [facility] - [facility] 13:32:28 Social History Question Answer Notes LastModified by [employer] Details LastModified Time Tobacco Smoking Status Never Smoker JODY acosta [facility] 10/13/2022 09:57:27 Have You Recently Traveled Abroad? No Information not available 10/13/2022 Sex: Unknown Functional Status Question Answer Note LastModified by [employer] Details LastModified Time Do you use any illicit or recreational drugs? No Information not available 10/13/2022 Do you or have you ever used any other forms of tobacco or nicotine? No Information not available 10/13/2022 What is your level of alcohol consumption? Occasional Information not available 10/13/2022 Are you currently employed? Yes Information not available 10/13/2022 Mental Status None recorded. Family History Relationship [...] SNOMED-CT Code Diagnosis ICD10 Code Diagnosis Note [id number] [address] [place] [address] 08/07/2019 09:29:11 08/07/2019 10:22:42 [id number] [address] [place] [address] 08/02/2018 10:40:09 08/02/2018 11:28:31 [id number] [address] [place] [address] 08/24/2018 17:39:24 08/24/2018 18:05:06 [id number] [address] [place] [address] 11/22/2017 14:23:33 11/22/2017 15:52:56 [id number] [address] [place] [address] 12/01/2020 10:02:15 12/01/2020 11:47:36 [id number] [address] [place] [address] 04/26/2019 10:00:58 04/26/2019 10:34:36 [id number] [address] [place] [address] 2017 18:17:37 2017 19:09:49 [id number] [address] [place] [address] 08/19/2017 16:33:04 08/19/2017 17:16:02 [id number] [address] [place] [address] 05/03/2017 14:47:37 05/03/2017 15:49:06 [id number] [address] [place] [address] 06/29/2016 08:09:00 06/29/2016 08:44:35 [id number] [address] [place] [address] 04/12/2019 18:41:47 04/12/2019 19:34:20 [id number] Diego Floyd NP [address] [place] [address] 10/13/2022 08:37:05 10/13/2022 10:21:43 Acute right otitis media [id number] H66.91 Streptococ farzad sore throat 00562674 J02.0 [id number] Diego Floyd NP [address] [place] [address] 10/19/2022 13:06:05 10/19/2022 14:00:50 Acute right otitis media 105121223 H66.91 Health Concerns Section Related Observation LastModified by Organization Detai ls LastModified Time None Recorded Concern Status LastModified by Organization Details LastModified Time None Recorded Advance Directives Directive None Recorded Payers Insurance Date Sequence Insurance Name Policy Number Policy Chong Covered Member ID Chong Member ID Guarantor Name 12/28/2022 1 [facility] [id number] Robbie A Renaldo [id number] Robbie A Renaldo 12/28/2022 1 [place] [facility] Robbie A Renaldo [id number] Robbie A Renaldo Notes Date Note Type Note Provider Name and Address Organization Details Recorded Time 10/13/2022 text/html CongestionReport ed bypatient.Notes:right ear pain, sore throat, nasal congestion with post nasal drip x 3 days. denies any fever or fever with chills. no SOB or respiratory distress. Diego Floyd NP [address] [place], [address], [place] - [facility] 10/13/2022 10:20:45 10/19/2022 text/html CongestionReport ed bypatient.Notes:nasal congestion with post nasal drip x 3 weeks. denies nay fever or fever with chills. no SOB or respiratory distress.Ear Pain Brief HPIReported bypatient.Location:[facility] Onset/Timing:intermitte nt pain; gradual onset Duration:occurs daily; sensation/episode variable length Quality:aching pain;sharp pain Severity:getting worse Context:recent ear infection Alleviating factors:oral antibiotics Aggravating factors:sinus infections; allergies; irrigation of ear Associated Symptoms:Cough;nasal congestion;nasal discharge Diego Floyd NP [address] [place], [address], [place] - [facility] 10/19/2022 13:58:44 OBGyn Episode No OBEpisode recorded.
== END 2024-12-30 14:48 | disposition home or self-care (01) ==
LOC: HO.HMCC 13:56
PROVIDERS: PCP Internal Medicine; Visit Provider Internal Medicine
DX: Z00.01 Encounter for general adult medical examination with abnormal findings (principal); F98.8 Other specified behavioral and emotional disorders with onset usually occurring in childhood and adolescence; E66.9 Obesity, unspecified; Z68.35 Body mass index [BMI] 35.0-35.9, adult

== ENCOUNTER → 2024-12-30 13:55 | Outpatient (BNVA) | payer OTHER, SELFPAY | PROVIDERS: PCP Internal Medicine; Visit Provider Internal Medicine | DX: Z00.01 Encounter for general adult medical examination with abnormal findings (principal); F98.8 Other specified behavioral and emotional disorders with onset usually occurring in childhood and adolescence; E66.9 Obesity, unspecified; Z68.35 Body mass index [BMI] 35.0-35.9, adult | CPT/HCPCS: 96127 ==